=== PATIENT | female | born 1960 | race Caucasian/White ===

== ENCOUNTER 2017-09-21 09:03 | Day surgery (SDC) | payer BC ==
[~2017-09-21 09:03] MED LIST: ATEN100 PO; ATEN50 PO; CEPH500 PO; CYCL10 PO; LOSA25 PO; METO100ER PO; Prednisone20 MG PO; SULTRIDS PO; VENL75ER PO
== END 2017-09-21 11:27 | disposition home or self-care (01) ==
LOC: MHTC 09:03 → ORSCMMR 09:03 → ORD 09:30 → CT 10:00 → ORSCMMR 11:27 → ORD 11:27 → CT 09-24 13:00
PROVIDERS: Radiology Diagnostic Radiology
PROC: B221YZZ Computerized Tomography (CT Scan) of Multiple Coronary Arteries using Other Contrast (ICD-10-PCS; principal; 2017-09-21 09:30)
DX: R94.39 Abnormal result of other cardiovascular function study (principal); R07.89 Other chest pain; I10 Essential (primary) hypertension; Z87.891 Personal history of nicotine dependence; E78.5 Hyperlipidemia, unspecified; E11.9 Type 2 diabetes mellitus without complications; Z79.84 Long term (current) use of oral hypoglycemic drugs
CPT/HCPCS: 75574; Q9967

== ENCOUNTER → 2019-09-23 | Outpatient (CLI) | payer BC | LOC: LAB SHORT 15:35 → LAB 15:35 | DX: N61.1 Abscess of the breast and nipple (principal) | CPT/HCPCS: 87070; 87205 ==

== ENCOUNTER 2024-01-03 22:49 | Emergency (ER) | payer OTHER ==
[~2024-01-03] VITALS: Ht 162.6 cm; Wt 79.4 kg
[2024-01-03 22:56] VITALS: BP 174/81
[2024-01-03] MEDS ORDERED: OZEMPIC0.25 MG/02 (22:58)
== END 2024-01-03 23:21 | disposition home or self-care (01) ==
LOC: ER 22:49
DX: I80.8 Phlebitis and thrombophlebitis of other sites (principal); Z87.891 Personal history of nicotine dependence; Z79.899 Other long term (current) drug therapy; Z88.8 Allergy status to other drugs, medicaments and biological substances
CPT/HCPCS: 99283